=== PATIENT | male | born 1965 | race Caucasian/White ===

== ENCOUNTER 2017-10-12 16:48 | Emergency (ER) | payer SELFPAY ==
[~2017-10-12] VITALS: Ht 170.2 cm; Wt 136.1 kg
[2017-10-12] MEDS ORDERED: cefTRIAXone 1GM/10ml IVPUSH 10 ML IV ONE (17:45)
[2017-10-12] MEDS ORDERED: NALBUPHINE HCL 10 MG/1ml INJECTION IV ONE (17:45)
[2017-10-12] MEDS ORDERED: ONDANSETRON HCL 4 MG/2 ML VIAL IV ONE (17:45)
[2017-10-12] MEDS ORDERED: cloNIDine HCL 0.1 MG TAB ONE (17:49)
[2017-10-12] MEDS ORDERED: cloNIDine HCL 0.1 MG TAB PO ONE (18:00)
[2017-10-12 18:14] LABS: Basophils # (auto) 0.1 uL; Eosinophils # (auto) 0.1 uL; Eosinophils % (auto) 1.3 % (0.0-7.0); Lymphocytes # (auto) 0.6 uL; Monocytes # (auto) 0.8 uL
[2017-10-12 18:15] LABS: Basophils % (auto) 0.7 % (0.0-2.0); Hematocrit 35.1 % (41.0-53.0); Hemoglobin 11.2 g/dL (13.5-17.5); Lymphocytes % (auto) 7.6 % (10.0-50.0); Mean Corpuscular Hemoglobin 25.3 pg (28.0-32.0); Mean Corpuscular Hgb Conc. 31.7 g/dL (32.0-36.0); Mean Corpuscular Volume 79.6 fL (80.0-100.0); Monocytes % (auto) 9.4 % (0.0-12.0); Neutrophils # (auto) 6.7 uL; Platelet Count (auto) 272 10^3/uL (140-450); Red Blood Cells 4.42 10^6/uL (4.5-5.90); White Blood Cell 8.3 10^3/uL (4.4-10.8)
[2017-10-12 18:28] LABS: BUN/Creatinine Ratio 15.3; Potassium 3.6 mmol/L (3.5-5.1)
[2017-10-12 18:29] LABS: Albumin 3.1 g/dL (3.4-5.0); Calcium 8.5 mg/dL (8.5-10.1)
[2017-10-12 18:31] LABS: Bilirubin, Total 0.8 mg/dL (0.2-1.0); Total Protein 6.1 g/dL (6.4-8.2)
[2017-10-12] MEDS ORDERED: LABETALOL HCL 200 MG TAB PO ONE (20:15)
[2017-10-12 21:40] VITALS: BP 140/99
== END 2017-10-12 21:40 | disposition home or self-care (01) ==
LOC: ER 16:48
DX: S81.802A Unspecified open wound, left lower leg, initial encounter (principal); F17.210 Nicotine dependence, cigarettes, uncomplicated; W19.XXXA Unspecified fall, initial encounter; Y93.89 Activity, other specified; Y99.8 Other external cause status; Y92.89 Other specified places as the place of occurrence of the external cause
CPT/HCPCS: 36415; 73590; 80053; 85025; 87040; 96374; 96375; 99285; J2300; J2405

== ENCOUNTER 2017-10-13 02:04 | Emergency (ER) | payer SELFPAY ==
[2017-10-13] MEDS ORDERED: SODIUM CHLORIDE 0.9% 1,000 ML IV ONE (02:30)
[2017-10-13 04:30] VITALS: BP 144/83
== END 2017-10-13 04:42 | disposition home or self-care (01) ==
LOC: ER 02:04
DX: I95.9 Hypotension, unspecified (principal); F17.210 Nicotine dependence, cigarettes, uncomplicated; Z59.0 Homelessness; E66.01 Morbid (severe) obesity due to excess calories; R55 Syncope and collapse
CPT/HCPCS: 10060; 20610; 26010; 70450; 96360